=== PATIENT | male | born 1980 | race Caucasian/White ===

== ENCOUNTER 2024-02-08 10:47 | Day surgery (SDC) | payer OTHER ==
[2024-02-08] VITALS (14 sets, daily range): BP systolic 111–122; BP diastolic 63–75
[~2024-02-08] VITALS: Ht 180.3 cm; Wt 77.4 kg
[~2024-02-08 10:47] MED LIST: MULVITA PO
[2024-02-08] MEDS ORDERED: CeFAZolin Sodium 2,000 MG in NS 100 ML IV SCH (12:05)
[2024-02-08] MEDS ORDERED: Lactated Ringer's 1,000 ML IV SCH (12:05)
[2024-02-08] MEDS ORDERED: FentaNYL Citrate 50 MCG/ML 2 ML Injection ONE ×3 (12:15→16:39)
[2024-02-08] MEDS ORDERED: propofoL 20 ML IV ONE (12:15)
[2024-02-08] MEDS ORDERED: Rocuronium Bromide 10 MG/ML 5ML Injection IV ONE ×3 (12:16→14:31)
[2024-02-08] MEDS ORDERED: Lidocaine HCl 2% Jelly 120MG/6ML SYR (20MG PER ML) ONE (12:18)
[2024-02-08] MEDS ORDERED: HYDROmorphone HCl/Pf 1MG SYR IV PRN (12:25)
[2024-02-08] MEDS ORDERED: FentaNYL Citrate 50 MCG/ML 2 ML Injection IV PRN ×2 (12:25)
[2024-02-08] MEDS ORDERED: Midazolam HCl 1MG / ML 2ML Vial IV ONE (12:25)
[2024-02-08] MEDS ORDERED: Lidocaine HCl 1% 5 ML SYR INJ ONE (12:25)
[2024-02-08] MEDS ORDERED: Ondansetron HCl 2 MG / ML 2ML Vial IV PRN (12:25)
--- NOTE | 2024-02-08 12:45 | NUR ---
History, Chart, Medications and Allergies reviewed before start of procedure. Pre-Op teaching done. Pt verbalizes understanding. Patient States Post-Procedure ride home has been arranged WITH LUIS CARLOS. PT BELONGINGS PLACED IN BAG AND UNDER GURNEY.
[2024-02-08] MEDS ORDERED: Bupivacaine 0.5% HCl 5 MG/ML 30MLVIAL ONE (13:43)
[2024-02-08] MEDS ORDERED: Phenylephrine HCl 100 MCG/ML-NS 10MLSYR (1MG/10ML) ONE (14:08)
[2024-02-08] MEDS ORDERED: Dexamethasone Sod Phos 10 MG/ML 1ML VIAL ONE (14:21)
[2024-02-08] MEDS ORDERED: Ondansetron HCl 2 MG / ML 2ML Vial ONE (14:21)
[2024-02-08] MEDS ORDERED: Sugammadex Sodium 200 MG/2ML SDV (100 MG/ML) ONE (15:45)
[2024-02-08] MEDS ORDERED: OxyCODONE 5 mg/Acetamin 325 mg TABLET PO PRN (16:55)
--- NOTE | 2024-02-08 18:07 | NUR ---
Discharge instructions reviewed with patient. Patient verbalizes understanding. Copy given to patient to take home. Discharged via wheelchair to private car for ride home WITH LUIS CARLOS. BELONGINGS INCLUDING PHONE RETURNED TO PT.
== END 2024-02-08 18:09 | disposition home or self-care (01) ==
LOC: ORSCMMR 10:47 → ORD 13:00 → ORSCMMR 13:00
PROVIDERS: Surgery
PROC: 0YUE4JZ Supplement Bilateral Femoral Region with Synthetic Substitute, Percutaneous Endoscopic Approach (ICD-10-PCS; principal; 2024-02-08 13:00)
PROC: 0YUA4JZ Supplement Bilateral Inguinal Region with Synthetic Substitute, Percutaneous Endoscopic Approach (ICD-10-PCS; principal; 2024-02-08 13:00)
PROC: 8E0W4CZ Robotic Assisted Procedure of Trunk Region, Percutaneous Endoscopic Approach (ICD-10-PCS; principal; 2024-02-08 13:00)
DX: K40.20 Bilateral inguinal hernia, without obstruction or gangrene, not specified as recurrent (principal); K41.00 Bilateral femoral hernia, with obstruction, without gangrene, not specified as recurrent; D17.6 Benign lipomatous neoplasm of spermatic cord; K21.9 Gastro-esophageal reflux disease without esophagitis; F41.9 Anxiety disorder, unspecified
CPT/HCPCS: A9270; C1781; J0690; J1100; J2250; J2371; J2405; J2704; J3010; J7120